=== PATIENT | female | born 1940 | race Caucasian/White ===

== ENCOUNTER 2019-04-16 09:44 | Inpatient (IN) ==
[2019-04-16 10:58] LABS: Basophils % 0.1 % (0.0-0.8); Eosinophils # 0.1 10*3/uL (0.0-0.87); Eosinophils % 0.5 % (0.00-10.9); Hematocrit 33.2 VOL% (35.7-47.0); Immature Granulocytes % 1.3 %; Immature Granulocytes Absolute 0.19 #; Lymphocytes # 1.3 10*3/uL (1.4-4.0); Lymphocytes % 8.6 % (21.3-54.2); Mean Corpuscular HGB Conc 30.1 GM/DL (32-36); Mean Corpuscular Volume 91.2 FL (87-102); Mean Platelet Volume 11.4 FL (9.6-12.0); Monocytes % 7.7 % (1.7-12.7); Neutrophils % 81.8 % (38.7-73.9); Platelet Count 428 T/CUMM (130-400); Red Blood Count 3.64 MC/CUMM (3.8-5.5); Red Cell Distribution Width 14.6 % (9.3-17.3); White Blood Count 14.5 T/CUMM (4-12)
[2019-04-16 11:03] LABS: Apearance,Urine Slightly Hazy (Clear); Bilirubin,Urine Negative (Negative); Blood, Urine Negative (Negative); Glucose,Urine (UA) Negative (Negative); Hyaline Casts,Urine 7 /LPF (0-3); Ketones,Urine Negative (Negative); Mucus,Urine Many /LPF (Occasional); Nitrite,Urine Negative (Negative); Protein,Urine 30 MG/DL; RBC,Urine 6 /HPF (0-4); Squamous Epithelial Cell,Urine Occasional /HPF (0-10); Urine Color Yellow (Yellow); Urine Specific Gravity 1.025 (1.001-1.035); WBC,Urine 49 /HPF (0-6)
[2019-04-16 11:04] LABS: INR 0.9; PT Patient Result 9.8 SECS (9.6-12.2); Partial Thromboplastin Time 24.5 SECS (20.8-36.0)
[2019-04-16 11:11] LABS: Alanine Aminotransferase 70 U/L (13-56); Alkaline Phosphatase 183 U/L (45-117); Aspartate Amino Transferase 56 U/L (0-37); Bilirubin,Total < 0.39 MG/DL (0.2-1.0); Blood Urea Nitrogen 26 MG/DL (7-18); Calcium 9.3 MG/DL (8.5-10.1); Estimated Glom Filtration Rate 108 ML/MIN; Glucose 167 MG/DL (74-106); Osmolality,Calculated 287.4 MOS/KG (273-304); Total Protein 6.9 G/DL (6.4-8.3)
[2019-04-16] MEDS ORDERED: LEVOFLOXACIN INJ 500 MG in PREMIX 1 EACH IV STA (11:46)
[2019-04-16] MEDS ORDERED: ONDANSETRON 4 MG/2 ML VIAL IV PRN (16:04)
[2019-04-16] MEDS ORDERED: ACETAMINOPHEN 325 MG TABLET PO PRN (16:04)
[2019-04-16] MEDS ORDERED: SODIUM CHLORIDE 0.9% 1,000 ML IV SCH (16:30)
[2019-04-16] MEDS: PIPERACILLIN/TAZOBACTAM 3,375 MG in SODIUM CHLORIDE 0.9% 100 ML IV SCH (18:03)
[2019-04-16] MEDS: POTASSIUM CHLORIDE INJ 30 MEQ in DEXTROSE 5% LACTATED RINGERS 1,000 ML IV SCH (20:27)
[2019-04-16] MEDS: ENOXAPARIN 40 MG/0.4 ML SYRINGE SUBCUT SCH (20:28)
[2019-04-16] MEDS ORDERED: VANCOMYCIN INJ 2,000 MG in SODIUM CHLORIDE 0.9% 500 ML IV SCH (21:00)
[2019-04-16] MEDS: POTASSIUM CHLORIDE RIDER 10 MEQ in PREMIX 1 EACH IV SCH ×3 (21:07→23:06)
[2019-04-17] MEDS: POTASSIUM CHLORIDE RIDER 10 MEQ in PREMIX 1 EACH IV SCH
[2019-04-17] MEDS: PIPERACILLIN/TAZOBACTAM 3,375 MG in SODIUM CHLORIDE 0.9% 100 ML IV SCH ×3 (01:08→16:35)
[2019-04-17 05:11] LABS: Basophils % 0.2 % (0.0-0.8); Eosinophils # 0.2 10*3/uL (0.0-0.87); Eosinophils % 1.4 % (0.00-10.9); Immature Granulocytes % 1.4 %; Immature Granulocytes Absolute 0.22 #; Lymphocytes # 1.1 10*3/uL (1.4-4.0); Lymphocytes % 7.2 % (21.3-54.2); Mean Corpuscular HGB Conc 30.3 GM/DL (32-36); Mean Corpuscular Volume 91.9 FL (87-102); Mean Platelet Volume 11.2 FL (9.6-12.0); Monocytes % 6.7 % (1.7-12.7); Neutrophils % 83.1 % (38.7-73.9); Platelet Count 404 T/CUMM (130-400); Red Blood Count 3.59 MC/CUMM (3.8-5.5); Red Cell Distribution Width 14.8 % (9.3-17.3); White Blood Count 15.3 T/CUMM (4-12)
[2019-04-17 05:39] LABS: Calcium 8.8 MG/DL (8.5-10.1); Osmolality,Calculated 289.4 MOS/KG (273-304)
[2019-04-17] MEDS ORDERED: PANTOPRAZOLE 40 MG TABLET PO SCH (09:00)
[2019-04-17] MEDS: POTASSIUM CHLORIDE INJ 30 MEQ in DEXTROSE 5% LACTATED RINGERS 1,000 ML IV SCH (10:00)
[2019-04-17] MEDS ORDERED: LEVOFLOXACIN INJ 500 MG in PREMIX 1 EACH IV SCH (13:00)
[2019-04-17] MEDS: FAMOTIDINE 20 MG/2 ML VIAL IV SCH ×2 (16:35→20:58)
[2019-04-17] MEDS: ENOXAPARIN 40 MG/0.4 ML SYRINGE SUBCUT SCH (20:58)
[2019-04-18] MEDS: PIPERACILLIN/TAZOBACTAM 3,375 MG in SODIUM CHLORIDE 0.9% 100 ML IV SCH ×3 (01:55→16:48)
[2019-04-18] MEDS: POTASSIUM CHLORIDE INJ 30 MEQ in DEXTROSE 5% LACTATED RINGERS 1,000 ML IV SCH ×2 (05:59→08:24)
[2019-04-18] MEDS: FAMOTIDINE 20 MG/2 ML VIAL IV SCH ×2 (08:22→21:57)
[2019-04-18] MEDS: hydrALAZINE 20 MG/1 ML VIAL IV PRN (13:44)
[2019-04-18] MEDS: ENOXAPARIN 40 MG/0.4 ML SYRINGE SUBCUT SCH (22:03)
[2019-04-19] MEDS: PIPERACILLIN/TAZOBACTAM 3,375 MG in SODIUM CHLORIDE 0.9% 100 ML IV SCH ×3 (01:20→17:23)
[2019-04-19 07:31] LABS: Basophils % 0.4 % (0.0-0.8); Eosinophils # 0.1 10*3/uL (0.0-0.87); Eosinophils % 0.9 % (0.00-10.9); Hematocrit 33.7 VOL% (35.7-47.0); Hemoglobin 10.1 GM/DL (12.0-16.0); Immature Granulocytes % 2.7 %; Immature Granulocytes Absolute 0.28 #; Lymphocytes # 1.3 10*3/uL (1.4-4.0); Lymphocytes % 12.7 % (21.3-54.2); Mean Corpuscular Volume 92.6 FL (87-102); Mean Platelet Volume 11.5 FL (9.6-12.0); Monocytes % 7.4 % (1.7-12.7); Neutrophils % 75.9 % (38.7-73.9); Platelet Count 405 T/CUMM (130-400); Red Blood Count 3.64 MC/CUMM (3.8-5.5); Red Cell Distribution Width 15.4 % (9.3-17.3); White Blood Count 10.4 T/CUMM (4-12)
[2019-04-19 08:01] LABS: Calcium 8.8 MG/DL (8.5-10.1); Osmolality,Calculated 293.6 MOS/KG (273-304)
[2019-04-19 08:04] LABS: Bilirubin,Direct 0.23 MG/DL (0.0-0.20); Bilirubin,Indirect 0.3 MG/DL (0.0-1.0); Bilirubin,Total 0.5 MG/DL (0.2-1.0); Total Protein 6.3 G/DL (6.4-8.3)
[2019-04-19] MEDS: hydrALAZINE 20 MG/1 ML VIAL IV PRN ×2 (09:30→22:06)
[2019-04-19] MEDS: FAMOTIDINE 20 MG/2 ML VIAL IV SCH ×2 (09:31→22:08)
[2019-04-19] MEDS: POTASSIUM CHLORIDE INJ 40 MEQ in SODIUM CHLORIDE 0.9% 1,000 ML IV SCH (13:22)
[2019-04-19] MEDS: ENOXAPARIN 40 MG/0.4 ML SYRINGE SUBCUT SCH (22:11)
[2019-04-19] MEDS: DONEPEZIL 5 MG TABLET PEG SCH (22:11)
[2019-04-20] MEDS: PIPERACILLIN/TAZOBACTAM 3,375 MG in SODIUM CHLORIDE 0.9% 100 ML IV SCH ×3 (00:43→17:30)
[2019-04-20] MEDS: POTASSIUM CHLORIDE INJ 40 MEQ in SODIUM CHLORIDE 0.9% 1,000 ML IV SCH (00:44)
[2019-04-20] MEDS: ASPIRIN EC 325 MG TABLET PO SCH (10:22)
[2019-04-20] MEDS: LOSARTAN 50 MG TABLET PEG SCH (10:22)
[2019-04-20] MEDS: FAMOTIDINE 20 MG/2 ML VIAL IV SCH ×2 (10:22→21:59)
[2019-04-20] MEDS: NEBIVOLOL 5 MG TABLET PEG SCH (10:23)
[2019-04-20] MEDS: SODIUM CHLOR 0.9% KCL 40 MEQ 40 MEQ/1,000 ML BAG IV SCH (17:36)
[2019-04-20] MEDS: hydrALAZINE 20 MG/1 ML VIAL IV PRN (21:48)
[2019-04-20] MEDS: ENOXAPARIN 40 MG/0.4 ML SYRINGE SUBCUT SCH (21:49)
[2019-04-20] MEDS: DONEPEZIL 5 MG TABLET PEG SCH (21:50)
[2019-04-21] MEDS: PIPERACILLIN/TAZOBACTAM 3,375 MG in SODIUM CHLORIDE 0.9% 100 ML IV SCH ×2 (01:11→10:27)
[2019-04-21] MEDS: SODIUM CHLOR 0.9% KCL 40 MEQ 40 MEQ/1,000 ML BAG IV SCH ×2 (01:11→06:24)
[2019-04-21] MEDS: hydrALAZINE 20 MG/1 ML VIAL IV PRN (03:32)
[2019-04-21 05:21] LABS: Calcium 8.2 MG/DL (8.5-10.1); Osmolality,Calculated 298.3 MOS/KG (273-304); Prealbumin 11.1 MG/DL (20-40)
[2019-04-21] MEDS: FAMOTIDINE 20 MG/2 ML VIAL IV SCH (10:29)
[2019-04-21] MEDS: NEBIVOLOL 5 MG TABLET PEG SCH (10:30)
[2019-04-21] MEDS: ASPIRIN EC 325 MG TABLET PO SCH (10:30)
[2019-04-21] MEDS: LOSARTAN 50 MG TABLET PEG SCH (10:32)
[2019-04-21] MEDS ORDERED: AMOXICILLIN/CLAV 875 MG TABLET PO SCH (11:30)
[2019-04-21 11:50] VITALS: BP 189/81
[2019-04-22 14:22] LABS: Astrovirus Negative (Negative); Cryptosporidium species Negative (Negative); Cyclospora cayetanensis Negative (Negative); Entamoeba histolytica Negative (Negative); Enteropathogenic E.coli (EPEC) Negative (Negative); Enterotoxigenic E. coli (ETEC) Negative (Negative); Norovirus GI/GII Negative (Negative); Plesiomonas shigelloides Negative (Negative); Salmonella species Negative (Negative); Sapovirus Negative (Negative); Shiga toxin producing E. coli Negative (Negative); Shigella/Enteroinvasive E.coli Negative (Negative); Specimen Source STOOL; Vibrio cholerae Negative (Negative); Yersinia enterocolitica Negative (Negative)
== END 2019-04-21 14:00 | disposition home or self-care (01) | DRG 388 ==
LOC: N.ED 09:44 → N.EDINP 16:05 → SUATTDRO 16:05 → N.5E 16:32
PROVIDERS: ADMIT Hospitalist; ATTEND Emergency Medicine

== ENCOUNTER 2019-04-25 02:05 | Inpatient (IN) ==
[2019-04-25] MEDS ORDERED: PIPERACILLIN/TAZOBACTAM 3,375 MG in SODIUM CHLORIDE 0.9% 100 ML IV STA (04:14)
[2019-04-25] MEDS ORDERED: FUROSEMIDE 100 MG/10 ML VIAL IV STA (04:14)
[2019-04-25] MEDS ORDERED: methylPREDNISolone SOD SUC 125 MG/2 ML VIAL IV STA (04:14)
[2019-04-25] MEDS ORDERED: ONDANSETRON 4 MG/2 ML VIAL IV STA (04:14)
[2019-04-25] MEDS ORDERED: ALBUTEROL NEB SOLN 5 MG/ML 20 ML/BOTTLE RESP TX SCH (04:30)
[2019-04-25 04:41] LABS: ABG HCO3 30.8 MMOL/L (20-26); ABG Oxygen Saturation 97.4 % (95-100); ABG PCO2 54.4 MM HG (35-48); ABG PO2 94.5 MM HG (80-95); ABG TCO2 29.4 MMOL/L (23-27); Allen Test Positive
[2019-04-25] MEDS ORDERED: PIPERACILLIN/TAZOBACTAM 3,375 MG in SODIUM CHLORIDE 0.9% 100 ML IV SCH (05:00)
[2019-04-25 05:01] LABS: Basophils # 0.1 10*3/uL (0.0-0.2); Basophils % 0.4 % (0.0-0.8); Hematocrit 39.1 VOL% (35.7-47.0); Hemoglobin 11.7 GM/DL (12.0-16.0); Immature Granulocytes % 1.4 %; Immature Granulocytes Absolute 0.48 #; Lymphocytes # 0.6 10*3/uL (1.4-4.0); Lymphocytes % 1.7 % (21.3-54.2); Mean Corpuscular HGB Conc 29.9 GM/DL (32-36); Mean Corpuscular Volume 95.8 FL (87-102); Mean Platelet Volume 12.8 FL (9.6-12.0); Monocytes % 3.3 % (1.7-12.7); Neutrophils % 93.2 % (38.7-73.9); Platelet Count 363 T/CUMM (130-400); Red Blood Count 4.08 MC/CUMM (3.8-5.5); Red Cell Distribution Width 16.6 % (9.3-17.3); White Blood Count 33.9 T/CUMM (4-12)
[2019-04-25 05:05] LABS: INR 0.9; PT Patient Result 10.2 SECS (9.6-12.2)
[2019-04-25 05:10] LABS: Alanine Aminotransferase 88 U/L (13-56); Albumin 2.4 G/DL (3.4-5.0); Alkaline Phosphatase 137 U/L (45-117); Aspartate Amino Transferase 43 U/L (0-37); Bilirubin,Total < 0.39 MG/DL (0.2-1.0); Blood Urea Nitrogen 19 MG/DL (7-18); Calcium 9.6 MG/DL (8.5-10.1); Estimated Glom Filtration Rate 106 ML/MIN; Glucose 203 MG/DL (74-106); Osmolality,Calculated 288.3 MOS/KG (273-304); Total Protein 6.2 G/DL (6.4-8.3)
[2019-04-25] MEDS ORDERED: VANCOMYCIN INJ 1,000 MG in SODIUM CHLORIDE 0.9% 250 ML IV STA (05:12)
[2019-04-25 05:21] LABS: Band Neutrophils 5 % (0-10); Hypochromasia 1+; Lymphocytes 1 % (20-55); Platelet Estimate Adequate; Segmented Neutrophils 92 % (50-85); Total Cells Counted 100
[2019-04-25] MEDS ORDERED: SODIUM CHLORIDE 0.9% 3,400 ML IV ONE (05:31)
[2019-04-25] MEDS ORDERED: NOREPINEPHRINE 8 MG in SODIUM CHLORIDE 0.9% 242 ML IV PRN (05:32)
[2019-04-25] MEDS ORDERED: NOREPINEPHRINE 4 MG/4 ML VIAL IV ONE (05:43)
[2019-04-25] MEDS ORDERED: ONDANSETRON 4 MG/2 ML VIAL IV PRN (06:25)
[2019-04-25 06:27] LABS: ABG Base Excess 3.6 MMOL/L (-2.5-2.5); ABG HCO3 26.9 MMOL/L (20-26); ABG Oxygen Saturation 99.2 % (95-100); ABG PCO2 35.8 MM HG (35-48); ABG PH 7.494 (7.35-7.45); ABG PO2 254.3 MM HG (80-95); Allen Test Positive; Pt O2 Delivery Device Ventilator
[2019-04-25] MEDS ORDERED: VECURONIUM 10 MG VIAL IV ONE (06:49)
[2019-04-25] MEDS ORDERED: ETOMIDATE 20 MG/10 ML VIAL IV ONE (06:49)
[2019-04-25 06:54] LABS: Apearance,Urine CLOUDY (Clear); Bilirubin,Urine Negative (Negative); Blood, Urine Negative (Negative); Glucose,Urine (UA) 50 mg/dL (Negative); Ketones,Urine 5 mg/dL (Negative); Mucus,Urine Few /LPF (Occasional); Nitrite,Urine Negative (Negative); Protein,Urine 100 MG/DL; Squamous Epithelial Cell,Urine Occasional /HPF (0-10); Urine Color Dark yellow (Yellow); Urine Specific Gravity 1.029 (1.001-1.035); WBC,Urine 256 /HPF (0-6)
[2019-04-25] MEDS: SODIUM CHLORIDE 0.9% 1,000 ML IV SCH ×3 (08:16→20:47)
[2019-04-25] MEDS: ENOXAPARIN 40 MG/0.4 ML SYRINGE SUBCUT SCH (08:29)
[2019-04-25] MEDS: CEFEPIME 1,000 MG in SODIUM CHLORIDE 0.9% 100 ML IV SCH ×3 (08:33→20:15)
[2019-04-25] MEDS: ALBUTEROL/IPRATROPIUM 3 ML NEB RESP TX SCH ×5 (08:34→22:55)
[2019-04-25] MEDS: VANCOMYCIN INJ 1,750 MG in SODIUM CHLORIDE 0.9% 500 ML IV SCH ×2 (09:06→21:00)
[2019-04-25] MEDS ORDERED: INFLUENZA VIRUS VACCINE 0.5 ML SYRINGE IM ONE (12:01)
[2019-04-25] MEDS: PROPOFOL 1,000 MG/100 ML BOTTLE IV SCH (14:42)
[2019-04-26] MEDS: PROPOFOL 1,000 MG/100 ML BOTTLE IV SCH ×6 (00:40→20:27)
[2019-04-26] MEDS: ALBUTEROL/IPRATROPIUM 3 ML NEB RESP TX SCH ×6 (02:52→23:28)
[2019-04-26] MEDS: CEFEPIME 1,000 MG in SODIUM CHLORIDE 0.9% 100 ML IV SCH ×4 (03:40→19:57)
[2019-04-26 04:03] LABS: ABG Base Excess 4.2 MMOL/L (-2.5-2.5); ABG HCO3 27.4 MMOL/L (20-26); ABG Oxygen Saturation 95.6 % (95-100); ABG PCO2 34.9 MM HG (35-48); ABG PH 7.512 (7.35-7.45); ABG PO2 75.4 MM HG (80-95); ABG TCO2 28.4 MMOL/L (23-27); Allen Test Positive; Pt O2 Delivery Device Ventilator
[2019-04-26] MEDS: SODIUM CHLORIDE 0.9% 1,000 ML IV SCH ×3 (04:11→16:46)
[2019-04-26 05:00] LABS: Basophils % 0.1 % (0.0-0.8); Hematocrit 24.1 VOL% (35.7-47.0); Hemoglobin 7.3 GM/DL (12.0-16.0); Immature Granulocytes % 0.9 %; Immature Granulocytes Absolute 0.17 #; Lymphocytes # 0.7 10*3/uL (1.4-4.0); Lymphocytes % 3.7 % (21.3-54.2); Mean Corpuscular HGB Conc 30.3 GM/DL (32-36); Mean Corpuscular Volume 93.4 FL (87-102); Mean Platelet Volume 12.4 FL (9.6-12.0); Neutrophils % 90.3 % (38.7-73.9); Platelet Count 203 T/CUMM (130-400); Red Blood Count 2.58 MC/CUMM (3.8-5.5); Red Cell Distribution Width 17.3 % (9.3-17.3); White Blood Count 18.7 T/CUMM (4-12)
[2019-04-26 05:25] LABS: Albumin 1.7 G/DL (3.4-5.0); Bilirubin,Total 0.4 MG/DL (0.2-1.0); Calcium 8.1 MG/DL (8.5-10.1); Osmolality,Calculated 298.3 MOS/KG (273-304); Total Protein 5.1 G/DL (6.4-8.3)
[2019-04-26 05:28] LABS: Lymphocytes 5 % (20-55); Segmented Neutrophils 89 % (50-85); Total Cells Counted 100
[2019-04-26 05:29] LABS: Hypochromasia 1+; Platelet Estimate Adequate
[2019-04-26] MEDS: ENOXAPARIN 40 MG/0.4 ML SYRINGE SUBCUT SCH (07:24)
[2019-04-26] MEDS: POTASSIUM CHLORIDE RIDER 20 MEQ in PREMIX 1 EACH IV PRN ×2 (07:30→09:31)
[2019-04-26] MEDS: VANCOMYCIN INJ 1,750 MG in SODIUM CHLORIDE 0.9% 500 ML IV SCH ×2 (08:14→19:57)
[2019-04-26] MEDS: POTASSIUM CHLORIDE RIDER 10 MEQ in PREMIX 1 EACH IV PRN (12:00)
[2019-04-26] MEDS: METOCLOPRAMIDE 10 MG/2 ML VIAL IV SCH ×2 (12:19→18:07)
[2019-04-26] MEDS ORDERED: DEXTROSE 10% 250 ML BAG IV PRN (13:21)
[2019-04-26] MEDS ORDERED: GLUCAGON 1 MG VIAL IM PRN (13:21)
[2019-04-26] MEDS: POTASSIUM CHLORIDE 20 MEQ/15 ML UDCUP PER TUBE SCH ×3 (15:32→21:07)
[2019-04-26] MEDS: hydrALAZINE 20 MG/1 ML VIAL IV PRN (22:21)
[2019-04-27] MEDS: PROPOFOL 1,000 MG/100 ML BOTTLE IV SCH ×5 (00:38→23:30)
[2019-04-27] MEDS: METOCLOPRAMIDE 10 MG/2 ML VIAL IV SCH ×4 (00:59→17:16)
[2019-04-27] MEDS: CEFEPIME 1,000 MG in SODIUM CHLORIDE 0.9% 100 ML IV SCH ×4 (01:01→19:55)
[2019-04-27] MEDS: SODIUM CHLORIDE 0.9% 1,000 ML IV SCH ×3 (02:29→06:03)
[2019-04-27] MEDS: ALBUTEROL/IPRATROPIUM 3 ML NEB RESP TX SCH ×6 (03:23→23:30)
[2019-04-27 04:37] LABS: ABG Base Excess 2.2 MMOL/L (-2.5-2.5); ABG HCO3 26.4 MMOL/L (20-26); ABG Oxygen Saturation 98.9 % (95-100); ABG PCO2 30.1 MM HG (35-48); ABG PH 7.521 (7.35-7.45); ABG TCO2 22.8 MMOL/L (23-27); Allen Test Positive; Pt O2 Delivery Device Ventilator
[2019-04-27] MEDS: hydrALAZINE 20 MG/1 ML VIAL IV PRN ×2 (05:07→14:08)
[2019-04-27 05:15] LABS: Basophils % 0.1 % (0.0-0.8); Eosinophils # 0.1 10*3/uL (0.0-0.87); Eosinophils % 1.2 % (0.00-10.9); Hematocrit 25.8 VOL% (35.7-47.0); Hemoglobin 7.8 GM/DL (12.0-16.0); Immature Granulocytes % 0.7 %; Immature Granulocytes Absolute 0.08 #; Lymphocytes % 9.6 % (21.3-54.2); Mean Corpuscular HGB Conc 30.2 GM/DL (32-36); Mean Corpuscular Volume 92.5 FL (87-102); Mean Platelet Volume 12.8 FL (9.6-12.0); Monocytes % 6.1 % (1.7-12.7); Neutrophils % 82.3 % (38.7-73.9); Platelet Count 200 T/CUMM (130-400); Red Blood Count 2.79 MC/CUMM (3.8-5.5); Red Cell Distribution Width 17.7 % (9.3-17.3); White Blood Count 10.8 T/CUMM (4-12)
[2019-04-27 05:52] LABS: Calcium 7.9 MG/DL (8.5-10.1); Osmolality,Calculated 289.6 MOS/KG (273-304)
[2019-04-27] MEDS: ENOXAPARIN 40 MG/0.4 ML SYRINGE SUBCUT SCH (06:03)
[2019-04-27] MEDS ORDERED: LIDOCAINE 2% VISCOUS 100 ML BOTTLE SWISH/SPIT ONE (07:30)
[2019-04-27] MEDS ORDERED: LIDOCAINE 1% 20 ML VIAL MISC INJ ONE (07:30)
[2019-04-27] MEDS ORDERED: LIDOCAINE 2% 20 ML VIAL RESP TX ONE (07:30)
[2019-04-27] MEDS: VANCOMYCIN INJ 1,750 MG in SODIUM CHLORIDE 0.9% 500 ML IV SCH (08:24)
[2019-04-27] MEDS: LACTATED RINGERS 1,000 ML IV SCH (09:35)
[2019-04-28] MEDS: METOCLOPRAMIDE 10 MG/2 ML VIAL IV SCH ×4 (01:06→17:36)
[2019-04-28] MEDS: LACTATED RINGERS 1,000 ML IV SCH ×3 (01:08→14:47)
[2019-04-28] MEDS: CEFEPIME 1,000 MG in SODIUM CHLORIDE 0.9% 100 ML IV SCH ×2 (01:09→08:13)
[2019-04-28] MEDS: hydrALAZINE 20 MG/1 ML VIAL IV PRN ×5 (02:10→20:04)
[2019-04-28] MEDS: ALBUTEROL/IPRATROPIUM 3 ML NEB RESP TX SCH ×6 (03:05→23:47)
[2019-04-28 04:58] LABS: ABG Base Excess 0.7 MMOL/L (-2.5-2.5); ABG HCO3 23.5 MMOL/L (20-26); ABG Oxygen Saturation 96.4 % (95-100); ABG PCO2 30.8 MM HG (35-48); ABG PH 7.501 (7.35-7.45); ABG PO2 81.5 MM HG (80-95); ABG TCO2 24.5 MMOL/L (23-27); Allen Test Positive; Pt O2 Delivery Device Ventilator
[2019-04-28 05:54] LABS: Calcium 8.2 MG/DL (8.5-10.1)
[2019-04-28] MEDS: ENOXAPARIN 40 MG/0.4 ML SYRINGE SUBCUT SCH (06:15)
[2019-04-28] MEDS: PROPOFOL 1,000 MG/100 ML BOTTLE IV SCH (06:40)
[2019-04-28] MEDS: POTASSIUM CHLORIDE RIDER 10 MEQ in PREMIX 1 EACH IV PRN ×2 (08:48→12:25)
[2019-04-28] MEDS: MEROPENEM 500 MG in SODIUM CHLORIDE 0.9% 100 ML IV SCH ×2 (14:53→20:12)
[2019-04-28] MEDS ORDERED: GENTAMICIN IV ONE (15:00)
[2019-04-28] MEDS ORDERED: SODIUM CHLORIDE 0.9% IV ONE (15:00)
[2019-04-28] MEDS ORDERED: GENTAMICIN INJ 560 MG in SODIUM CHLORIDE 0.9% 100 ML IV SCH (15:00)
[2019-04-29] MEDS: METOCLOPRAMIDE 10 MG/2 ML VIAL IV SCH ×4 (01:39→17:37)
[2019-04-29] MEDS: GENTAMICIN INJ 160 MG in SODIUM CHLORIDE 0.9% 100 ML IV SCH ×2 (01:41→14:00)
[2019-04-29] MEDS: hydrALAZINE 20 MG/1 ML VIAL IV PRN (02:02)
[2019-04-29] MEDS: MEROPENEM 500 MG in SODIUM CHLORIDE 0.9% 100 ML IV SCH ×4 (03:08→20:12)
[2019-04-29 04:25] LABS: ABG Base Excess 1.7 MMOL/L (-2.5-2.5); ABG HCO3 25.9 MMOL/L (20-26); ABG PCO2 46.6 MM HG (35-48); ABG PH 7.374 (7.35-7.45); ABG PO2 72.7 MM HG (80-95); ABG TCO2 25.5 MMOL/L (23-27); Allen Test Positive; Pt O2 Delivery Device Venturi Mask
[2019-04-29] MEDS: ALBUTEROL/IPRATROPIUM 3 ML NEB RESP TX SCH ×6 (04:29→22:30)
[2019-04-29 04:39] LABS: Calcium 8.5 MG/DL (8.5-10.1); Osmolality,Calculated 282.1 MOS/KG (273-304)
[2019-04-29] MEDS: LACTATED RINGERS 1,000 ML IV SCH ×2 (05:31→05:57)
[2019-04-29] MEDS: ENOXAPARIN 40 MG/0.4 ML SYRINGE SUBCUT SCH (05:57)
[2019-04-29] MEDS: POTASSIUM CHLORIDE RIDER 10 MEQ in PREMIX 1 EACH IV PRN ×2 (06:00→07:10)
[2019-04-29] MEDS ORDERED: MAGNESIUM SULF RIDER 2 GM in PREMIX 1 EACH IV ONE (08:15)
[2019-04-30] MEDS: METOCLOPRAMIDE 10 MG/2 ML VIAL IV SCH ×4 (00:55→17:48)
[2019-04-30] MEDS: ALBUTEROL/IPRATROPIUM 3 ML NEB RESP TX SCH ×6 (02:30→23:15)
[2019-04-30] MEDS: MEROPENEM 500 MG in SODIUM CHLORIDE 0.9% 100 ML IV SCH ×4 (03:59→21:50)
[2019-04-30 04:47] LABS: Calcium 8.7 MG/DL (8.5-10.1); Osmolality,Calculated 279.3 MOS/KG (273-304)
[2019-04-30] MEDS: ENOXAPARIN 40 MG/0.4 ML SYRINGE SUBCUT SCH (05:47)
[2019-04-30] MEDS: GENTAMICIN INJ 160 MG in SODIUM CHLORIDE 0.9% 100 ML IV SCH (10:08)
[2019-04-30] MEDS ORDERED: oxyCODONE/ACETAMINOPHEN 5-325 MG TABLET PEG PRN (10:41)
[2019-04-30] MEDS ORDERED: POLYVINYL ALCOHOL 1.4% OPH SOLN 15 ML BOTTLE BOTH EYES PRN (10:41)
[2019-04-30] MEDS: SKIN HEALING OINT (AQUAPHOR) 50 GM TUBE TOP SCH ×2 (12:00→21:51)
[2019-04-30] MEDS: NEBIVOLOL 5 MG TABLET PEG SCH (12:00)
[2019-04-30] MEDS: LOSARTAN 50 MG TABLET PEG SCH (12:01)
[2019-04-30] MEDS: DONEPEZIL 5 MG TABLET PEG SCH (21:54)
[2019-05-01] MEDS: METOCLOPRAMIDE 10 MG/2 ML VIAL IV SCH ×5 (00:55→23:36)
[2019-05-01] MEDS: MEROPENEM 500 MG in SODIUM CHLORIDE 0.9% 100 ML IV SCH ×4 (02:45→21:17)
[2019-05-01] MEDS: SKIN HEALING OINT (AQUAPHOR) 50 GM TUBE TOP SCH ×3 (02:45→18:22)
[2019-05-01] MEDS: ALBUTEROL/IPRATROPIUM 3 ML NEB RESP TX SCH ×6 (03:50→23:10)
[2019-05-01] MEDS: ENOXAPARIN 40 MG/0.4 ML SYRINGE SUBCUT SCH (06:15)
[2019-05-01 06:50] LABS: Basophils % 0.5 % (0.0-0.8); Eosinophils # 0.7 10*3/uL (0.0-0.87); Eosinophils % 7.9 % (0.00-10.9); Hematocrit 30.5 VOL% (35.7-47.0); Hemoglobin 9.1 GM/DL (12.0-16.0); Immature Granulocytes % 1.5 %; Immature Granulocytes Absolute 0.13 #; Lymphocytes # 1.2 10*3/uL (1.4-4.0); Lymphocytes % 13.4 % (21.3-54.2); Mean Corpuscular HGB Conc 29.8 GM/DL (32-36); Mean Platelet Volume 12.9 FL (9.6-12.0); Monocytes % 10.4 % (1.7-12.7); Neutrophils % 66.3 % (38.7-73.9); Platelet Count 157 T/CUMM (130-400); Red Blood Count 3.28 MC/CUMM (3.8-5.5); Red Cell Distribution Width 17.2 % (9.3-17.3); White Blood Count 8.7 T/CUMM (4-12)
[2019-05-01 07:00] LABS: Calcium 9.4 MG/DL (8.5-10.1); Osmolality,Calculated 284.1 MOS/KG (273-304)
[2019-05-01] MEDS: ESCITALOPRAM 10 MG TABLET PEG SCH (09:40)
[2019-05-01] MEDS: NEBIVOLOL 5 MG TABLET PEG SCH (09:41)
[2019-05-01] MEDS: LOSARTAN 50 MG TABLET PEG SCH (09:41)
[2019-05-01] MEDS: GENTAMICIN INJ 160 MG in SODIUM CHLORIDE 0.9% 100 ML IV SCH (11:21)
[2019-05-01] MEDS ORDERED: ACETAMINOPHEN 325 MG TABLET PO PRN (12:09)
[2019-05-01] MEDS ORDERED: FUROSEMIDE 40 MG/4 ML VIAL IV ONE (15:22)
[2019-05-01] MEDS: DONEPEZIL 5 MG TABLET PEG SCH (21:12)
[2019-05-02] MEDS: MEROPENEM 500 MG in SODIUM CHLORIDE 0.9% 100 ML IV SCH ×4 (03:02→22:34)
[2019-05-02] MEDS: SKIN HEALING OINT (AQUAPHOR) 50 GM TUBE TOP SCH ×3 (03:03→18:18)
[2019-05-02] MEDS: ALBUTEROL/IPRATROPIUM 3 ML NEB RESP TX SCH ×6 (03:10→23:57)
[2019-05-02] MEDS: METOCLOPRAMIDE 10 MG/2 ML VIAL IV SCH ×3 (05:18→18:17)
[2019-05-02] MEDS: ENOXAPARIN 40 MG/0.4 ML SYRINGE SUBCUT SCH (05:47)
[2019-05-02] MEDS: NEBIVOLOL 5 MG TABLET PEG SCH (09:07)
[2019-05-02] MEDS: ESCITALOPRAM 10 MG TABLET PEG SCH (09:07)
[2019-05-02] MEDS: LOSARTAN 50 MG TABLET PEG SCH (09:07)
[2019-05-02] MEDS: DONEPEZIL 5 MG TABLET PEG SCH (22:34)
[2019-05-03] MEDS: METOCLOPRAMIDE 10 MG/2 ML VIAL IV SCH ×4 (00:01→18:45)
[2019-05-03] MEDS: ALBUTEROL/IPRATROPIUM 3 ML NEB RESP TX SCH ×6 (03:13→23:25)
[2019-05-03] MEDS: SKIN HEALING OINT (AQUAPHOR) 50 GM TUBE TOP SCH ×3 (03:20→19:07)
[2019-05-03] MEDS: MEROPENEM 500 MG in SODIUM CHLORIDE 0.9% 100 ML IV SCH ×4 (03:20→21:06)
[2019-05-03] MEDS: ENOXAPARIN 40 MG/0.4 ML SYRINGE SUBCUT SCH (06:42)
[2019-05-03] MEDS: LOSARTAN 50 MG TABLET PEG SCH (09:43)
[2019-05-03] MEDS: ESCITALOPRAM 10 MG TABLET PEG SCH (09:43)
[2019-05-03] MEDS: NEBIVOLOL 5 MG TABLET PEG SCH (09:43)
[2019-05-03] MEDS: DONEPEZIL 5 MG TABLET PEG SCH (21:06)
[2019-05-04] MEDS: METOCLOPRAMIDE 10 MG/2 ML VIAL IV SCH ×4 (00:56→18:04)
[2019-05-04] MEDS: SKIN HEALING OINT (AQUAPHOR) 50 GM TUBE TOP SCH ×3 (03:14→20:20)
[2019-05-04] MEDS: ALBUTEROL/IPRATROPIUM 3 ML NEB RESP TX SCH ×6 (03:14→22:50)
[2019-05-04] MEDS: MEROPENEM 500 MG in SODIUM CHLORIDE 0.9% 100 ML IV SCH ×4 (03:59→20:20)
[2019-05-04] MEDS: ENOXAPARIN 40 MG/0.4 ML SYRINGE SUBCUT SCH (05:55)
[2019-05-04] MEDS: NEBIVOLOL 5 MG TABLET PEG SCH (09:39)
[2019-05-04] MEDS: ESCITALOPRAM 10 MG TABLET PEG SCH (09:39)
[2019-05-04] MEDS: LOSARTAN 50 MG TABLET PEG SCH (09:39)
[2019-05-04] MEDS: DONEPEZIL 5 MG TABLET PEG SCH (20:20)
[2019-05-05] MEDS: METOCLOPRAMIDE 10 MG/2 ML VIAL IV SCH ×2 (00:18→06:15)
[2019-05-05] MEDS: SKIN HEALING OINT (AQUAPHOR) 50 GM TUBE TOP SCH ×2 (03:28→10:00)
[2019-05-05] MEDS: MEROPENEM 500 MG in SODIUM CHLORIDE 0.9% 100 ML IV SCH ×2 (03:28→08:29)
[2019-05-05] MEDS: ALBUTEROL/IPRATROPIUM 3 ML NEB RESP TX SCH ×3 (04:04→11:34)
[2019-05-05 05:37] LABS: Basophils % 0.3 % (0.0-0.8); Eosinophils # 0.5 10*3/uL (0.0-0.87); Eosinophils % 5.8 % (0.00-10.9); Hemoglobin 9.4 GM/DL (12.0-16.0); Immature Granulocytes % 1.3 %; Immature Granulocytes Absolute 0.11 #; Lymphocytes % 11.9 % (21.3-54.2); Mean Corpuscular HGB Conc 29.4 GM/DL (32-36); Mean Corpuscular Volume 94.4 FL (87-102); Mean Platelet Volume 12.2 FL (9.6-12.0); Monocytes % 9.5 % (1.7-12.7); Neutrophils % 71.2 % (38.7-73.9); Platelet Count 279 T/CUMM (130-400); Red Blood Count 3.39 MC/CUMM (3.8-5.5); Red Cell Distribution Width 17.8 % (9.3-17.3); White Blood Count 8.7 T/CUMM (4-12)
[2019-05-05] MEDS: ENOXAPARIN 40 MG/0.4 ML SYRINGE SUBCUT SCH (06:19)
[2019-05-05 07:16] VITALS: BP 153/65
[2019-05-05] MEDS: NEBIVOLOL 5 MG TABLET PEG SCH (08:29)
[2019-05-05] MEDS: LOSARTAN 50 MG TABLET PEG SCH (08:29)
[2019-05-05] MEDS: ESCITALOPRAM 10 MG TABLET PEG SCH (08:29)
== END 2019-05-05 11:57 | disposition hospice, home (50) | DRG 871 ==
LOC: EDUNIT# → EDBD → N.ED 02:05 → N.EDINP 06:25 → SUATTDRO 06:25 → N.ICU 06:45 → N.5E 04-30 15:31
PROVIDERS: ADMIT Internal Medicine